=== PATIENT | female | born 1955 | race Caucasian/White ===

== ENCOUNTER → 2018-06-24 | Outpatient (CLI) | payer BC ==
[~2018-06-24] MED LIST: ASPI-555 PO; DULO30CA51 PO; ESOM40CA PO; MULT-40 PO; UBID400C6 PO; ZOLP10TA6 PO
== END | disposition home or self-care (01) ==
LOC: RAH 08:15
PROVIDERS: ATTEND Internal Medicine
DX: E04.1 Nontoxic single thyroid nodule (principal); I10 Essential (primary) hypertension; K21.9 Gastro-esophageal reflux disease without esophagitis; E78.5 Hyperlipidemia, unspecified; F32.9 Major depressive disorder, single episode, unspecified; G47.33 Obstructive sleep apnea (adult) (pediatric); E11.9 Type 2 diabetes mellitus without complications; Z79.899 Other long term (current) drug therapy; Z88.8 Allergy status to other drugs, medicaments and biological substances
CPT/HCPCS: 60100; 76942; 88161; 88305; A4215

== ENCOUNTER → 2018-12-31 | Outpatient (CLI) | payer BC | END | disposition home or self-care (01) | LOC: RAH 09:49 | PROVIDERS: ATTEND Internal Medicine | DX: K80.20 Calculus of gallbladder without cholecystitis without obstruction (principal) | CPT/HCPCS: 76705 ==

== ENCOUNTER → 2021-05-22 | Outpatient (CLI) | payer BC ==
[~2021-05-22] MED LIST changes: -ASPI-555 PO; +ASPI-556 PO; -DULO30CA51 PO; +DULO30CA52 PO
== END | disposition home or self-care (01) ==
LOC: OIH 15:29
PROVIDERS: ATTEND Internal Medicine
DX: I10 Essential (primary) hypertension (principal)
CPT/HCPCS: 71046

== ENCOUNTER → 2021-11-15 | Outpatient (CLI) | payer BC | END | disposition home or self-care (01) | LOC: RAH 15:57 | PROVIDERS: ATTEND Internal Medicine | DX: M47.816 Spondylosis without myelopathy or radiculopathy, lumbar region (principal); M48.061 Spinal stenosis, lumbar region without neurogenic claudication; M41.86 Other forms of scoliosis, lumbar region; M16.0 Bilateral primary osteoarthritis of hip | CPT/HCPCS: 72082; 72100; 73502 ==

== ENCOUNTER → 2022-07-23 | Outpatient (CLI) | payer MEDICARE | END | disposition home or self-care (01) | LOC: RAH 08:34 | PROVIDERS: ATTEND Internal Medicine | DX: R05.3 Chronic cough (principal); M47.815 Spondylosis without myelopathy or radiculopathy, thoracolumbar region; M41.9 Scoliosis, unspecified | CPT/HCPCS: 71046 ==

== ENCOUNTER → 2023-05-08 | Outpatient (CLI) | payer OTHER ==
[~2023-05-08] MED LIST changes: -UBID400C6 PO; +UBID400C8 PO
== END | disposition home or self-care (01) ==
LOC: RAH 09:31
PROVIDERS: ATTEND Internal Medicine
DX: Z13.6 Encounter for screening for cardiovascular disorders (principal)
CPT/HCPCS: 75571

== ENCOUNTER → 2024-09-28 | Outpatient (CLI) | payer MEDICARE ==
--- NOTE | 2024-09-28 13:31 | HMCIMG ---
SCOLIOSIS 2-3VW REASON: S/P SPINAL FUSION Technique: 8 3 views scoliosis survey was obtained of the entire spine AP and lateral projections. Comparison: 11/15/2021 FINDINGS: There is mild broad-based to texture scoliosis of the lumbar spine, 12 degrees. This is markedly decreased compared to prior exam. There is extensive hardware in the lower thoracic and lumbar spine as well as the iliac wings, hardware appears intact. There is no curvature in the thoracic or cervical spine. IMPRESSION: 1. Marked interval decrease in focal dextroscoliosis of the lumbar spine, there is an 11 mm residual scoliosis remaining. 2. Surgical hardware appears intact.
== END | disposition home or self-care (01) ==
LOC: RAH 10:23
PROVIDERS: ATTEND Orthopaedic Surgery
DX: M41.86 Other forms of scoliosis, lumbar region (principal); Z98.1 Arthrodesis status
CPT/HCPCS: 72082

== ENCOUNTER → 2025-03-03 | Outpatient (CLI) | payer MEDICARE ==
--- NOTE | 2025-03-03 10:41 | HMCIMG ---
Exam Type: LUMBAR SPINE 2-3VWS Clinical Information: LUMBAR RADICULOPATHY Comparison: None Findings: Status post Kennedy Sarah marjorie placement and significant interval improvement in the dextroscoliosis seen in preop films. Osteopenia. Multilevel disc fusion. No acute fractures or dislocations. IMPRESSION: Postoperative and chronic changes.
--- NOTE | 2025-03-03 10:58 | HMCIMG ---
Exam Type: THORACIC SPINE SERIES History: THORACIC BACK PAIN Comparison: none Findings: The thoracic spine is well visualized. All pedicles and spinous processes are intact. There is osteopenia. Several vertebroplasty sites of the lower dorsal spine are seen and there is hardware transfixing the lower dorsal to the upper and entire lumbar spine. No acute fracture or bony lesions are identified. The vertebral bodies are well aligned, and the disc spaces are normal. The visualized soft tissues are unremarkable. IMPRESSION: Osteopenia and chronic changes.
== END | disposition home or self-care (01) ==
LOC: RAH 09:54
PROVIDERS: ATTEND Internal Medicine
DX: M85.80 Other specified disorders of bone density and structure, unspecified site (principal); M54.16 Radiculopathy, lumbar region; M43.26 Fusion of spine, lumbar region; Z12.31 Encounter for screening mammogram for malignant neoplasm of breast; M54.6 Pain in thoracic spine; Z98.890 Other specified postprocedural states
CPT/HCPCS: 72070; 72100

== ENCOUNTER → 2025-06-27 | Outpatient (CLI) | payer MEDICARE ==
--- NOTE | 2025-06-28 08:55 | HMCIMG ---
EXAM: CT Abdomen and Pelvis Without IV Contrast CLINICAL HISTORY: Patient presents with unspecified hydronephrosis. TECHNIQUE: Axial computed tomography images of the abdomen and pelvis without intravenous contrast. CONTRAST: No IV contrast. COMPARISON: 05/05/2025. FINDINGS: LUNG BASES: The lung bases appear clear. No pleural effusion. LIVER: Unremarkable. GALLBLADDER AND BILE DUCTS: The gallbladder appears within normal limits. No radioopaque gallstones. No biliary ductal dilatation. PANCREAS: Unremarkable. SPLEEN: Unremarkable. ADRENAL GLANDS: Unremarkable. KIDNEYS, URETERS, AND BLADDER: The kidneys appear within normal limits. No hydronephrosis, hydroureter, or urinary calculi. The urinary bladder is suboptimally distended. STOMACH AND BOWEL: No bowel obstruction or inflammation. APPENDIX: No findings to suggeta acute appendicitis. PERITONEUM: No free fluid. No free air. LYMPH NODES: No lymphadenopathy. REPRODUCTIVE: Unremarkable as visualized. VASCULATURE: No abdominal aortic aneurysm. BONES: Status post laminectomy with posterior fusion hardware in the visualized spine and bilateral sacroiliac joints. No acute osseous pathology. IMPRESSION: No acute abdominal or pelvic pathology. /Jewett
== END | disposition home or self-care (01) ==
LOC: RAH 09:20
PROVIDERS: ATTEND Internal Medicine Nephrology
DX: N32.89 Other specified disorders of bladder (principal); N13.30 Unspecified hydronephrosis; M43.28 Fusion of spine, sacral and sacrococcygeal region
CPT/HCPCS: 74176